=== PATIENT | male | born 1970 | race Caucasian/White ===

== ENCOUNTER 2016-10-17 13:31 | Emergency (ER) | payer BC, OTHER ==
[~2016-10-17] VITALS: Ht 195.6 cm; Wt 136.0 kg
[~2016-10-17 13:31] MED LIST: BLOOD PRESSURE MEDS; FENO130C2
[2016-10-17 13:34] VITALS: Ht 195.6 cm; Wt 136.0 kg
[2016-10-17] MEDS ORDERED: IBUP-1542 PO (15:44)
[2016-10-17] MEDS ORDERED: CEPH-443 PO (15:44)
--- NOTE | 2016-10-17 16:13 | ERD ---
ER Documentation Chief Complaint Date/Time DATE: 10/17/16 TIME: 15:55 Chief Complaint R middle finger catcus thorn HPI 46-year-old male complaining of cactus thorn embedded in his right hand. Patient stated that he was doing yard work yesterday, and had cactus thorn punctured his dorsal right hand overlying the third metacarpal phalangeal joint. He is reporting pain at the site, and felt like something is in it. Patient has history of diabetes and hypertension. ROS All systems reviewed and are negative except as per history of present illness. Medications Home Meds Active Scripts Ibuprofen* (Motrin*) 600 Mg Tab, 600 MG PO Q6H Y for PAIN AND OR ELEVATED TEMP, #30 TAB Prov:CLAUDE CHAVARRIA. DISTRICT [employer]PERATIONS MANAGER 10/17/16 Cephalexin* (Keflex*) 500 Mg Capsule, 500 MG PO QID for 5 Days, CAP Prov:CLAUDE CHAVARRIA. DISTRICT OPERATIONS MANAGER 10/17/16 Reported Medications [Blood Pressure Meds] TAB No Conflict Check 09/10/10 Fenofibrate, Micronized* (Antara*) 130 Mg Capsule 09/10/10 Allergies Allergies: Coded Allergies: No Known Allergies (Verified Allergy, Unknown, 09/10/10) PMhx/Soc History of Surgery: Yes (RIGHT HERNIA REPAIR; angioplasty) Anesthesia Reaction: No Hx Neurological Disorder: No Hx Respiratory Disorders: No Hx Cardiac Disorders: Yes (hypertension) Hx Psychiatric Problems: No Hx Miscellaneous Medical Probl: Yes (HIGH CHOLESTEROL) Hx Alcohol Use: Yes (OCCASIONAL) Hx Substance Use: No Hx Tobacco Use: Yes Smoking Status: Current every day smoker Physical Exam Vitals Vital Signs Date Time Temp Pulse Resp B/P Pulse Ox O2 Delivery O2 Flow Rate FiO2 10/17/16 13:34 96.9 72 18 168/103 98 Physical Exam General: Well-developed, well-nourished, conscious and coherent, in no distress Skin: Warm and dry without rash, good texture and turgor Head: Normocephalic without evidence of trauma Eyes: Sclera and conjunctivae normal; pupils equal, round, and reactive to light; extraocular movements are intact Chest: Normal AP diameter. Good expansion without retractions. Nontender. Lungs are clear to auscultate bilaterally with good tidal volume Heart: Regular rate and rhythm. No murmur, rub, or gallops heard Abdomen: Soft and nontender without masses, guarding, or rebound. Bowel sounds are active. No hepatosplenomegaly Extremities: Full range of motion. Good strength bilaterally. No clubbing, cyanosis, or edema. Peripheral pulses are intact. Sensation intact. Very small puncture wound noted on the dorsal right hand overlying the third MCP, with slight surrounding erythema and tenderness. Neuro: Alert and oriented 4, GCS 15. Cranial nerves II-XII intact. Motor and sensory exams nonfocal. Moves all extremities. Speech clear. Gait normal Procedures/MDM Well-appearing 46-year-old male presented to ED with small puncture wound of the right hand due to cactus thorn. The wound was probed using tweezers, no foreign body is noted. Informed patient that it is not uncommon to experience continue pain and erythema after a puncture from cactus thorn. No sign of cellulitis or other deep tissue infection. However, considering the patient has diabetes, I will prescribe him a course of Keflex as antibiotic prophylaxis. Advised patient to return to eating 2 days for follow-up wound check if there is no improvement. Departure Diagnosis: Primary Impression: Puncture wound Condition: Good Patient Instructions: Puncture Wound, General Additional Instructions: Return to this facility in 2 DAYS for a follow-up exam if there's no improvement. Return sooner if your condition worsens. CLAUDE CHAVARRIA NP October 17, 2016 16:13
== END 2016-10-17 15:56 | disposition home or self-care (01) ==
LOC: FTE 13:31
DX: S61.431A Puncture wound without foreign body of right hand, initial encounter (principal); I10 Essential (primary) hypertension; E11.9 Type 2 diabetes mellitus without complications; F17.210 Nicotine dependence, cigarettes, uncomplicated; W26.8XXA Contact with other sharp object(s), not elsewhere classified, initial encounter; Y92.69 Other specified industrial and construction area as the place of occurrence of the external cause
CPT/HCPCS: 99283